=== PATIENT | male | born 1985 | race Caucasian/White ===

== ENCOUNTER 2024-04-05 18:59 | Observation (INO) | payer OTHER ==
[~2024-04-05] VITALS: Ht 172.7 cm; Wt 97.0 kg
[2024-04-05] MEDS ORDERED: ACETAMINOPHEN 650 MG SUPP PR ONE (19:15)
[2024-04-05] MEDS ORDERED: HYDROmorphone HCL 1 MG/ML SYR IV PRN (19:15)
[2024-04-05] MEDS ORDERED: LACTATED RINGER'S 1,000 ML IV ONE (19:15)
[2024-04-05] MEDS ORDERED: ondansetron HCL 4 MG/2 ML VIAL IV ONE (19:15)
[2024-04-05] MEDS ORDERED: PIPERACILLIN/TAZOBACTAM 3.375 GM in DEXTROSE 5% 100 ML IV ONE (19:15)
[2024-04-05] MEDS ORDERED: DEXTROSE 5% 100 ML IV ONE (19:16)
[2024-04-05 19:21] LABS: BASOPHILS 0.3 % (0-2); EOSINOPHILS 0.1 % (0-6); HEMATOCRIT 43.7 % (35.0-50.0); HEMOGLOBIN 14.9 g/dL (12.0-18.0); LYMPHOCYTES 5.7 % (24-44); MCH 27.2 (27-36); MCHC 34.2 g/dl (30-36); MCV 79.5 fl (81-99); MONOCYTES 6.2 % (0-12); NEUTROPHILS 87.7 % (39-80); PLATELET COUNT 169 K/uL (140-440); RBC 5.49 M/ul (4.3-5.7); RDW 13.7 (10.5-15.0)
[2024-04-05 19:30] LABS: PROTIME 12.8 Sec (11.2-14.2)
[2024-04-05] MEDS ORDERED: KETOROLAC TROMETHAMINE 30 MG/ML VIAL IV ONE (19:30)
[2024-04-05 19:32] LABS: PARTIAL THROMBOPLASTIN TIME 24.2 Sec (22.9-41.3)
[2024-04-05 19:36] LABS: ALBUMIN 4.2 g/dL (3.4-5.0); ALBUMIN/GLOBULIN RATIO 1.2 (1.1-2.4); BILIRUBIN, TOTAL 0.6 ng/dL (0.2-1.0); BUN/CREATININE RATIO 11.01 (6.0-28.6); CALCIUM 8.9 mg/dL (8.5-10.1); CREATININE, SERUM 1.18 mg/dL (0.70-1.30); PROTEIN, TOTAL 7.7 g/dL (6.4-8.2)
[2024-04-05] MEDS ORDERED: AMITRIPTYLINE H25 MG PO (19:37)
[2024-04-05] MEDS ORDERED: MELATONIN5 M2 PO (19:37)
[2024-04-05] MEDS ORDERED: FAMOTIDINE 20 MG/ 2 ML VIAL IV ONE (20:15)
[2024-04-05] MEDS ORDERED: LACTATED RINGER'S 1,000 ML IV SCH ×3 (20:15→23:15)
[2024-04-05 20:35] LABS: BILIRUBIN, URINE NEGATIVE (negative); BLOOD/HGB, URINE NEGATIVE (Negative); KETONE, URINE TRACE (Negative); LEUK ESTERASE, URINE NEGATIVE (negative); NITRITE, URINE NEGATIVE (negative); PH, URINE 6.5 (5-7)
[2024-04-05] MEDS ORDERED: KETOROLAC TROMETHAMINE 30 MG/ML VIAL IV PRN ×2 (20:45→23:15)
[2024-04-05] MEDS ORDERED: MORPHINE SULFATE 10 MG/ML VIAL IV PRN (20:45)
[2024-04-05] MEDS ORDERED: ondansetron HCL 4 MG/2 ML VIAL IV PRN ×2 (20:45→23:15)
[2024-04-05 20:49] LABS: AMPHETAMINES, URINE NEGATIVE (NEGATIVE); BARBITURATES, URINE NEGATIVE (NEGATIVE); BENZODIAZEPINE, URINE NEGATIVE (NEGATIVE); BUPRENORPHINE, URINE NEGATIVE (NEGATIVE); CANNABINOID, URINE NEGATIVE (NEGATIVE); COCAINE, URINE NEGATIVE (NEGATIVE); ECSTASY, URINE NEGATIVE (NEGATIVE); FENTANYL, URINE NEGATIVE (NEGATIVE); METHADONE, URINE NEGATIVE (NEGATIVE); OPIATES, URINE NEGATIVE (NEGATIVE); OXYCODONE, URINE NEGATIVE (NEGATIVE); PHENCYCLIDINE, URINE NEGATIVE (NEGATIVE)
[2024-04-05] MEDS ORDERED: FAMOTIDINE 20 MG/ 2 ML VIAL IV SCH ×2 (21:00→23:17)
[2024-04-05 21:31] VITALS: BP 128/73
[2024-04-05] MEDS ORDERED: ACETAMINOPHEN 1,000 MG/100 ML VIAL IV PRN (21:45)
--- NOTE | 2024-04-05 21:48 | EKG ---
[facility] [address] [place] [address] Signed Sinus tachycardia Nonspecific T wave abnormality Abnormal ECG No previous ECGs available Confirmed by Rachael Powers MD () on 04/05/2024 9:47:59 PM Electronically Signed By: RACHAEL POWERS MD 04/05/24 2148 PATIENT NAME: NAZARIO ORTA KEYON Electrocardiogram DATE OF : 83 PHYSICIAN: RACHAEL POWERS MD REPORT #: [id number] REPORT IS CONFIDENTIAL AND NOT TO BE RELEASED WITHOUT AUTHORIZATION
[2024-04-05] MEDS ORDERED: HEParin SOD (PORCINE) 5,000 UNIT/0.5 ML SYR SUB-Q SCH (23:17)
[2024-04-06] VITALS (14 sets, daily range): BP systolic 110–137; BP diastolic 63–83
[2024-04-06] MEDS ORDERED: PIPERACILLIN/TAZOBACTAM 3.375 GM VIAL ONE (04:59)
[2024-04-06 05:25] LABS: BASOPHILS 0.3 % (0-2); EOSINOPHILS 0.1 % (0-6); HEMATOCRIT 38.4 % (35.0-50.0); HEMOGLOBIN 13.2 g/dL (12.0-18.0); LYMPHOCYTES 12.9 % (24-44); MCH 27.3 (27-36); MCHC 34.3 g/dl (30-36); MCV 79.7 fl (81-99); MONOCYTES 6.7 % (0-12); PLATELET COUNT 133 K/uL (140-440); RBC 4.82 M/ul (4.3-5.7); RDW 13.3 (10.5-15.0)
[2024-04-06 05:44] LABS: ALBUMIN 3.3 g/dL (3.4-5.0); ALBUMIN/GLOBULIN RATIO 1.1 (1.1-2.4); ANION GAP 11.8 (7-21); BILIRUBIN, TOTAL 0.7 ng/dL (0.2-1.0); BUN/CREATININE RATIO 10.16 (6.0-28.6); CALCIUM 8.2 mg/dL (8.5-10.1); CREATININE, SERUM 1.18 mg/dL (0.70-1.30); POTASSIUM 3.8 mmol/L (3.5-5.1); PROTEIN, TOTAL 6.3 g/dL (6.4-8.2)
[2024-04-06] MEDS ORDERED: PIPERACILLIN/TAZOBACTAM 3.375 GM in DEXTROSE 5% 100 ML IV SCH (06:00)
[2024-04-06] MEDS ORDERED: HEParin SOD (PORCINE) 5,000 UNIT/ML SDV SUB-Q SCH (09:00)
[2024-04-06] MEDS ORDERED: dexmedeTOMIDine HCl 200 MCG/2 ML VIAL ONE (11:23)
[2024-04-06] MEDS ORDERED: ACETAMINOPHEN 1,000 MG/100 ML VIAL ONE (11:24)
[2024-04-06] MEDS ORDERED: DEXAMETHASONE SOD PHOS 4 MG/ML VIAL ONE (11:24)
[2024-04-06] MEDS ORDERED: KETOROLAC TROMETHAMINE 30 MG/ML VIAL ONE (11:24)
[2024-04-06] MEDS ORDERED: ondansetron HCL 4 MG/2 ML VIAL ONE (11:24)
[2024-04-06] MEDS ORDERED: LIDOCAINE HCL 1% 30 ML SDV ONE (11:24)
[2024-04-06] MEDS ORDERED: KETAMINE in NS 50 MG/5 ML SYR ONE (11:24)
[2024-04-06] MEDS ORDERED: propofoL 200 MG/20 ML VIAL ONE (11:24)
[2024-04-06] MEDS ORDERED: ROCURONIUM BROMIDE 50 MG/5 ML SYR ONE (11:24)
[2024-04-06] MEDS ORDERED: LACTATED RINGER'S 1,000 ML IV ONE (11:25)
[2024-04-06] MEDS ORDERED: SUGAMMADEX SODIUM 200 MG/2 ML ML ONE (12:02)
[2024-04-06] MEDS ORDERED: NALOXONE HCL 0.4 MG SYR IV PRN (12:45)
[2024-04-06] MEDS ORDERED: fentaNYL citrate 50 MCG/ML SDV IV PRN (12:45)
[2024-04-06] MEDS ORDERED: IBLOOD GLUCOSE TEST STRIP 1 EA TEST VI PRN (12:45)
[2024-04-06] MEDS ORDERED: ondansetron HCL 4 MG/2 ML VIAL IV PRN (12:45)
[2024-04-06] MEDS ORDERED: HYDROCODONE/ACETA 5/325 TAB PO PRN (13:00)
[2024-04-06] MEDS ORDERED: ACETAMINOPHEN 500 MG TAB PO PRN (13:00)
[2024-04-06] MEDS ORDERED: IBUPROFEN 600 MG TAB PO PRN (13:00)
[2024-04-06] MEDS ORDERED: AMOXICILLIN/CLAVULANATE K 500 MG TAB PO SCH (17:00)
[2024-04-06] MEDS ORDERED: AMOX TR-K CLV1 EACH PO (18:19)
[2024-04-06] MEDS ORDERED: IBUPROFEN600 MG PO (18:19)
[2024-04-06] MEDS ORDERED: ACETAMINOPHEN500 MG PO (18:20)
[2024-04-06] MEDS ORDERED: HYDROCODON-ACE1 EA10 PO (18:20)
--- NOTE | 2024-04-08 13:47 | OR ---
[facility] [address] [place], [place] [address] Signed DATE OF OPERATION: 04/06/2024 SURGEON: Abraham Hernández MD PREOPERATIVE DIAGNOSIS: Acute appendicitis. POSTOPERATIVE DIAGNOSIS: Acute suppurative appendicitis. PROCEDURE: Laparoscopic appendectomy. ANESTHESIA: General endotracheal, Meera Taylor CRNA and Yandel Prater CRNA and local 10 mL of 0.25% Marcaine with epinephrine. INDICATIONS: 39-year-old white man is a prisoner at [facility] and yesterday he began having lower abdominal pain mostly in the right side. He presented to emergency room late in the day and evaluated by Dr. Ion Mitchell and Dr. Trivedi and found to have clinical findings consistent with acute appendicitis including an elevated white count. A CT scan showing a dilated inflamed appendix. He has been fluid resuscitated given intravenous antibiotics and now to undergo appendectomy preferred by laparoscopic approach. The risk of bleeding, infection, need for open procedure, need for other indicated procedures was reviewed in detail. He understands and wished to proceed. FINDINGS: Advanced suppurative appendicitis was noted. Complete appendectomy was performed without problem. The cecum and terminal ileum appeared normal. There were no other findings of concern. PROCEDURE IN DETAIL: The patient was brought to the operating room, given a general endotracheal anesthetic. Preoperative antibiotics had been given. Sequential compression device stockings used. The abdomen was clipped and prepared with a chlorhexidine solution and draped sterilely. An infraumbilical incision was made and using an open Piyush cannula technique pneumoperitoneum was achieved to a level of 14 mmHg of carbon dioxide gas. Intra-abdominal inspection showed no sign of ascites or carcinomatosis. The appendix was obscured from view. The liver appeared normal. Electronically Signed By: ABRAHAM HERNÁNDEZ MD 04/08/24 1347 PATIENT NAME: NAZARIO ORTA OPERATIVE REPORT DATE OF : 83 REPORT #: [id number] PHYSICIAN: ABRAHAM HERNÁNDEZ MD PCP: CROW CANCINO REPORT IS CONFIDENTIAL AND NOT TO BE RELEASED WITHOUT AUTHORIZATION [facility] [address] [place], [place] [address] Signed A 12 mm epigastric port was placed and the camera was placed to that site. Single hand manipulation of the right lower abdomen demonstrated the appendix to be deviating towards the midline and anterior in position to the cecum itself. A right lower quadrant 5 mm trocar was placed. With two hand manipulation, the appendix was elevated and the suppurative nature of the appendix noted. There was no sign of abscess. A window was created between the appendix, the cecum, and the mesoappendix and an Endo NEGIN stapling device was used to transect the base of the appendix flushed with the cecum. The mesoappendix was well positioned to allow for an additional vascular load to secure the mesoappendix completely. The appendix was placed in an endobag and extracted through the infraumbilical port site and passed for pathology. Irrigation was undertaken in the right lower quadrant, though there was no sign of actual purulence. Staple lines appeared quite hemostatic. The trocars removed under direct visualization showing no sign of bleeding. The infraumbilical fascial incision was reapproximated with interrupted 0 Vicryl suture. A 10 mL of 0.25% Marcaine with epinephrine injected locally. The skin was then closed with interrupted 3-0 Vicryl. Steri-Strips were applied. He was ultimately extubated and transferred to the recovery room in good condition having suffered no complications. Sponge, needle, and instrument counts were reported as correct x3. MD KENNETH Linder/BERNYL /[id number] cc: Dr. Trivedi [facility] Copies: ~ Electronically Signed By: ABRAHAM HERNÁNDEZ MD 04/08/24 1347 PATIENT NAME: NAZARIO ORTA OPERATIVE REPORT DATE OF : 83 REPORT #: [id number] PHYSICIAN: ABRAHAM HERNÁNDEZ MD PCP: CROW CANCINO REPORT IS CONFIDENTIAL AND NOT TO BE RELEASED WITHOUT AUTHORIZATION
--- NOTE | 2024-04-08 13:47 | HP ---
[facility] [address] [place], [place] [address] Signed ADMISSION DATE: 04/05/2024 REASON FOR ADMISSION: Acute appendicitis. HISTORY OF PRESENT ILLNESS: This 39-year-old white man is a prisoner at [facility]. This morning, he began having some right lower abdominal pain. He had no antecedent epigastric or abdominal pain otherwise. He thought the pain was "gas." The patient ultimately made it known that he was not well and he was transferred to the [facility] ER at approximately 7:00 p.m., and evaluated by Dr. Mitchell and Dr. Trivedi for concerns of appendicitis. It is notable that the patient has a seizure history consider "febrile seizures." The patient is thought to have two seizures while at the longterm or in-transit, but no seizure activity while in the hospital. His seizure was manifested as "convulsions and unresponsiveness" and a 4-minute postictal phase. He had no injury associated with seizure activity. He notes that the seizure problem has been lifelong and is related to any disequilibrium of his health status generally, but most commonly with fever. He has been given IV Tylenol and he is afebrile at this time and doing well in that regard. He still has some mild right lower abdominal pain, but is not severely troubled. Evaluation included a CBC, which showed a white count of 13.7, hematocrit 43.7, platelets 169,000. Chem profile was normal. Creatinine was 1.18. A CT scan was performed showing findings of a likely early acute appendicitis. A skin base lesion of the left midline near the level of L4 was also noted and will be further evaluated by me later. SOCIAL HISTORY: He has been incarcerated (at this time) for two years. He has been incarcerated allover again in various prisons. REVIEW OF SYSTEMS: He denies any shortness of breath or chest pain. He has no seizure like aura or anything of that sort at this time. PHYSICAL EXAMINATION: GENERAL: Pleasant white man who does not look systemically toxic. VITAL SIGNS: Height is 5 feet 8 inches, weight is 97 kg. BMI 32.5. Trachea is Electronically Signed By: ABRAHAM HERNÁNDEZ MD 04/08/24 1347 PATIENT NAME: NAZARIO ORTA HISTORY AND PHYSICAL DATE OF : 83 REPORT #: [id number] PHYSICIAN: ABRAHAM HERNÁNDEZ MD PCP: CROW CANCINO REPORT IS CONFIDENTIAL AND NOT TO BE RELEASED WITHOUT AUTHORIZATION [facility] [address] [place], [place] [address] Signed midline. CHEST: Clear. HEART: Regular without murmur. ABDOMEN: Nondistended, generally soft, prompting sign is mildly positive. There is tenderness in McBurney's point as well. EXTREMITIES: Show no clubbing, cyanosis, or edema. LABORATORY STUDIES: As previously noted show a white count of 13.7, hematocrit 43.7. Coag studies show an INR of 1.00. Chem profile essentially normal. Lactic acid was 1.0. A tox screen was obtained, which was negative. Urinalysis was essentially normal. I reviewed a chest x-ray that was performed, which shows no sign of effusion or infiltrate. Heart is normal. Lung parenchyma is normal. Initially, I have reviewed the CT scan of the abdomen and pelvis, which shows clear lungs and normal liver and spleen and stomach. Both kidneys are normal. Gallbladder is small and relatively contracted without sign of stones. Appears to be a possibly radiodense fecalith and what appears to be the appendix. The appendix is medially oriented and not retrocecal in position. ASSESSMENT: The patient has clinical and radiographic evidence of acute appendicitis. With the whiteboard at hand, I did review with him the pathophysiology of acute appendicitis and recommended plan for appendectomy preferably by laparoscopic approach. The risk of bleeding, infection, need for open procedure, need for other indicated procedures and of course, the need for possible open procedure laparoscopic were reviewed in detail. He understands and agrees to proceed. We will continue with IV antibiotics, IV fluids and maintain an n.p.o. status anticipating operation within the next 12 hours more likely than not. MD KENNETH Linder/BERNYL /[id number] cc: DR. Trivedi [facility] Electronically Signed By: ABRAHAM HERNÁNDEZ MD 04/08/24 1347 PATIENT NAME: NAZARIO ORTA HISTORY AND PHYSICAL DATE OF : [birth year] REPORT #: [id number] PHYSICIAN: ABRAHAM HERNÁNDEZ MD PCP: CROW CANCINO REPORT IS CONFIDENTIAL AND NOT TO BE RELEASED WITHOUT AUTHORIZATION [address] [address] Signed Medical Department Copies: ~ Electronically Signed By: ABRAHAM HERNÁNDEZ MD 04/08/24 1347 PATIENT NAME: NAZARIO ORTA HISTORY AND PHYSICAL DATE OF : [birth year] REPORT #: [id number] PHYSICIAN: ABRAHAM HERNÁNDEZ MD PCP: CROW CANCINO REPORT IS CONFIDENTIAL AND NOT TO BE RELEASED WITHOUT AUTHORIZATION
--- NOTE | 2024-04-12 16:03 | PATH ---
[facility] [address] [place], [place] [address] Signed SPECIMEN(S): A APPENDIX SPECIMEN SOURCE: A. APPENDIX CLINICAL HISTORY: Acute appendicitis. FINAL PATHOLOGIC DIAGNOSIS: Appendix, appendectomy: - Acute appendicitis with periappendicitis and serositis. - Focal mucosal necrosis. JVR:shane MICROSCOPIC EXAMINATION: Histologic sections of all submitted blocks are examined by light microscopy. These findings, together with the gross examination, support the pathologic diagnosis. GROSS DESCRIPTION: The specimen, labeled and designated "Francisca, M," and designated on the requisition "appendix/gangrenous," is received in formalin and consists of Specimen: Appendix with mesoappendix. Dimensions: 7.2 x 1.0 cm. Serosa: Dusky pink-red marbled with areas of zuñiga-white exudate. Defect: Not grossly identified. Inking: Staple line is inked blue. Mucosa: Red-black and finely granular. Fecalith: Not grossly identified. Additional: None. [employer] sections are submitted in (A1). FB (under the direct supervision of a pathologist) The Gross Description was prepared using a voice recognition system. The report was reviewed for accuracy; however, sound-alike word errors, addition and/or deletions may occur. If there is any question about this report, please contact Client Services. PERFORMING LABORATORY: Technical component was performed by [facility], [address] [place] [id number] (CLIA# [id number]). Professional interpretation was performed by [employer] [facility] PATIENT NAME: NAZARIO ORTA PATHOLOGY DATE OF : [birth year] REPORT #: [id number] PHYSICIAN: JANE PATHOLOGY PCP: CROW CANCINO REPORT IS CONFIDENTIAL AND NOT TO BE RELEASED WITHOUT AUTHORIZATION [address] [address] [place] [address] (CLIA#: [id number]). Diagnostician: Levy Mccauley MD Pathologist Electronically Signed 04/12/2024 Copies: ~ PATIENT NAME: NAZARIO ORTA PATHOLOGY DATE OF : [birth year] REPORT #: [id number] PHYSICIAN: JANE PATHOLOGY PCP: CROW CANCINO REPORT IS CONFIDENTIAL AND NOT TO BE RELEASED WITHOUT AUTHORIZATION
== END 2024-04-06 18:55 | disposition home or self-care (01) ==
LOC: ED 18:59 → MS 20:51 → CCU 20:51 → MS 04-06 13:00
PROVIDERS: Internal Medicine; ADMIT Surgery; ATTEND Surgery
PROC: 0DTJ4ZZ Resection of Appendix, Percutaneous Endoscopic Approach (ICD-10-PCS; principal; 2024-04-05)
DX: K35.31 Acute appendicitis with localized peritonitis and gangrene, without perforation (principal); Z88.6 Allergy status to analgesic agent; Z79.899 Other long term (current) drug therapy
CPT/HCPCS: 00840; 36415; 71045; 74177; 80053; 80307; 81003; 83605; 85025; 85610; 85730; 87040; 93005; 93010; 94762; 96361; 96366; 96372; 96375; 96376; 99285-25; G0378; J0131; J1100; J1170; J1644; J1885; J2405; J2543; J2704; J3490; J7121; Q9967